=== PATIENT | male | born 1965 | race Caucasian/White ===

== ENCOUNTER → 2021-03-11 | Outpatient (CLI) | payer OTHER ==
[~2021-03-11] VITALS: Ht 180.3 cm; Wt 97.5 kg
[~2021-03-11] MED LIST: REGADENOSON 0.4 MG/5 ML PF SYG IVP SCH
== END | disposition home or self-care (01) ==
LOC: SHCH 09:03
PROVIDERS: ATTEND Internal Medicine Cardiovascular Disease
DX: R06.02 Shortness of breath (principal)
CPT/HCPCS: 78452; 93017; 96374; A9500 ×2; J2785